=== PATIENT | male | born 1950 | race Caucasian/White ===

== ENCOUNTER → 2016-10-24 | Outpatient (CLI) | payer OTHER ==
[~2016-10-24] VITALS: Ht 172.7 cm; Wt 116.1 kg
[~2016-10-24] MED LIST: ASPI81EC86; ASPIR-LOW81 MG PO; ASPIRIN E.C. 8181 MG PO; AVALIDE 12.5 MG1 TA1 PO; AVALIDE PO; BOOST PO; COZAAR 25MG25 MG/TAB PO; EPA FISH OIL1000 MG PO; FORTAMET500 MG PO; GLUCOPHAGE500 MG/TAB PO; LIPITOR20 MG PO; METFORMIN500 MG PO; MOBIC 7.5MG7.5 MG PO; MULTIPLE VITAMI1 TA2 PO; NORVASC 5MG5 MG/TAB PO; SIMVASTATIN10 MG PO; SIMVASTATIN40 MG PO; ZOCOR 40MG40 MG PO
[2016-10-24 16:36] VITALS: BP 121/66; PULSE 78
== END ==
LOC: LIGHT 14:45
DX: Z98.84 Bariatric surgery status (principal)

== ENCOUNTER → 2017-01-30 | Outpatient (CLI) | payer OTHER ==
[~2017-01-30] VITALS: Ht 170.2 cm; Wt 119.1 kg
[2017-01-30 13:45] VITALS: BP 144/80
== END ==
LOC: LIGHT 01-16 12:30
DX: Z98.84 Bariatric surgery status (principal); Z68.41 Body mass index [BMI] 40.0-44.9, adult; Z71.3 Dietary counseling and surveillance

== ENCOUNTER 2018-01-07 10:46 | Emergency (ER) | payer OTHER ==
[~2018-01-07] VITALS: Ht 170.2 cm; Wt 113.6 kg
[2018-01-07 10:52] VITALS: BP 143/71; PULSE 57; TEMP 98
[2018-01-07] MEDS ORDERED: ROXICODONE 55 MG/TAB PO (12:46)
[2018-01-07] MEDS ORDERED: PREDNISONE20 MG PO (12:46)
== END 2018-01-07 12:53 | disposition home or self-care (01) ==
LOC: COL.ER 10:46
DX: M54.31 Sciatica, right side (principal); E11.9 Type 2 diabetes mellitus without complications; I10 Essential (primary) hypertension; Z79.82 Long term (current) use of aspirin; Z79.84 Long term (current) use of oral hypoglycemic drugs; Z87.891 Personal history of nicotine dependence
CPT/HCPCS: J7512

== ENCOUNTER → 2018-01-24 | Outpatient (CLI) | payer OTHER ==
[~2018-01-24] MED LIST changes: +PREDNISONE20 MG PO; +ROXICODONE 55 MG/TAB PO
== END ==
LOC: MHCPAIN 14:07
DX: G89.29 Other chronic pain (principal); M47.817 Spondylosis without myelopathy or radiculopathy, lumbosacral region; M54.16 Radiculopathy, lumbar region; M53.3 Sacrococcygeal disorders, not elsewhere classified; M48.061 Spinal stenosis, lumbar region without neurogenic claudication
CPT/HCPCS: G0463

== ENCOUNTER → 2018-01-29 | Outpatient (CLI) | payer OTHER | LOC: MHCPAIN 09:52 | DX: M54.16 Radiculopathy, lumbar region (principal) | CPT/HCPCS: J1100; Q9967 ==

== ENCOUNTER → 2018-02-12 | Outpatient (CLI) | payer OTHER | LOC: MHCPAIN 11:12 | DX: G89.29 Other chronic pain (principal); M47.817 Spondylosis without myelopathy or radiculopathy, lumbosacral region; M54.16 Radiculopathy, lumbar region; M53.3 Sacrococcygeal disorders, not elsewhere classified; M48.061 Spinal stenosis, lumbar region without neurogenic claudication | CPT/HCPCS: G0463 ==

== ENCOUNTER → 2018-02-15 | Outpatient (CLI) | payer OTHER | LOC: MHCPAIN 13:18 | DX: M54.16 Radiculopathy, lumbar region (principal); M47.817 Spondylosis without myelopathy or radiculopathy, lumbosacral region | CPT/HCPCS: J1100; Q9967 ==

== ENCOUNTER → 2018-03-13 | Outpatient (CLI) | payer OTHER | LOC: MHCPAIN 13:20 | DX: G89.29 Other chronic pain (principal); M47.817 Spondylosis without myelopathy or radiculopathy, lumbosacral region; M54.16 Radiculopathy, lumbar region; M53.3 Sacrococcygeal disorders, not elsewhere classified; M48.061 Spinal stenosis, lumbar region without neurogenic claudication | CPT/HCPCS: G0463 ==

== ENCOUNTER 2018-04-02 15:00 | Outpatient (RCR) | payer OTHER | END 2018-05-02 | disposition home or self-care (01) | LOC: WSPT | DX: M47.26 Other spondylosis with radiculopathy, lumbar region (principal); M47.818 Spondylosis without myelopathy or radiculopathy, sacral and sacrococcygeal region; M48.061 Spinal stenosis, lumbar region without neurogenic claudication; M53.3 Sacrococcygeal disorders, not elsewhere classified; M51.26 Other intervertebral disc displacement, lumbar region; G89.4 Chronic pain syndrome; Z79.84 Long term (current) use of oral hypoglycemic drugs; Z79.82 Long term (current) use of aspirin; Z79.891 Long term (current) use of opiate analgesic; Z79.899 Other long term (current) drug therapy | CPT/HCPCS: G0283-GP ==

== ENCOUNTER 2018-05-10 02:53 | Emergency (ER) | payer OTHER ==
[~2018-05-10] VITALS: Ht 170.2 cm; Wt 118.2 kg
[2018-05-10 02:55] VITALS: TEMP 97.5
[2018-05-10 03:31] LABS: BASO % 0.4 % (0.0-2.0); EOS # 0.2 (0.0-0.7); EOS % 2.9 % (0-4.0); GRAN # 4.9 (1.4-6.5); GRAN % 68.7 % (42.2-75.2); LYMPH # 1.5 (1.2-3.4); MEAN CELL VOLUME 89 fl (80.0-100.0); MEAN CORPUSCULAR HGB CONC 32 g/dl (33.0-37.0); MEAN PLATELET VOLUME 8.7 fl (7.4-10.4); MONO # 0.5 (0.1-0.6); MONO % 6.3 % (1.7-9.3); PLATELET COUNT 396 K/mm3 (130-400); RED BLOOD COUNT 3.38 M/mm3 (4.20-5.60); REDCELL DISTRIBUTION WIDTH-CV 12.9 % (11.5-14.5)
[2018-05-10 03:32] LABS: HEMATOCRIT 29.9 % (42.0-52.0); HEMOGLOBIN 9.7 g/dl (13.5-18.0); MEAN CORPUSCULAR HEMOGLOBIN 29 pg (27.0-31.0)
[2018-05-10 03:43] LABS: ALBUMIN 3.8 gm/dL (3.5-5.0); BILIRUBIN,TOTAL 0.4 mg/dL (0.0-1.0); C-REACTIVE PROTEIN 1.6 mg/dL (0.0-0.9); CALCIUM 8.9 mg/dL (8.4-10.2); CREATININE, serum 0.7 mg/dL (0.66-1.25); POTASSIUM 3.8 mmol/L (3.4-5.0); TOTAL PROTEIN 6.8 gm/dL (6.4-8.2)
[2018-05-10 04:19] LABS: ERYTHROCYTE SEDIMENTATION RATE 33 mm/hr (0-30)
[2018-05-10 05:42] LABS: COLLECTION METHOD CLEAN CATCH
[2018-05-10 05:54] LABS: PH 8 (5-8); SQUAMOUS EPITHELIAL 0-2 /hpf; URINE APPEARANCE Clear; URINE BACTERIA None Seen /hpf; URINE BILIRUBIN Negative (NEGATIVE); URINE BLOOD Negative (NEGATIVE); URINE COLOR Straw; URINE GLUCOSE Negative (NEGATIVE); URINE KETONE Negative (NEGATIVE); URINE LEUKOCYTE ESTERASE Negative (NEGATIVE); URINE NITRATE Negative (NEGATIVE); URINE PROTEIN(semi-quant) Negative (NEGATIVE); URINE RBC 0-2 /hpf; URINE UROBILINOGEN Negative (NEGATIVE)
[2018-05-10 06:13] VITALS: BP 140/90; PULSE 83
== END 2018-05-10 06:23 | disposition home or self-care (01) ==
LOC: COL.ER 02:53
PROVIDERS: Emergency Medicine
DX: G89.18 Other acute postprocedural pain (principal); M54.5 Low back pain; E11.9 Type 2 diabetes mellitus without complications; Z79.84 Long term (current) use of oral hypoglycemic drugs; Z79.82 Long term (current) use of aspirin
CPT/HCPCS: J1170; J2060; J7030

== ENCOUNTER → 2018-06-01 | Outpatient (CLI) | payer OTHER | LOC: COL.RAD 12:21 | DX: M51.36 Other intervertebral disc degeneration, lumbar region (principal); M43.16 Spondylolisthesis, lumbar region; Z98.1 Arthrodesis status ==

== ENCOUNTER → 2019-06-03 | Outpatient (CLI) | payer OTHER | LOC: COL.RAD 12:23 | DX: M51.16 Intervertebral disc disorders with radiculopathy, lumbar region (principal); S34.109S Unspecified injury to unspecified level of lumbar spinal cord, sequela; M43.16 Spondylolisthesis, lumbar region; M99.83 Other biomechanical lesions of lumbar region; Z98.1 Arthrodesis status ==

== ENCOUNTER → 2019-08-26 | Outpatient (CLI) | payer OTHER ==
[~2019-08-26] VITALS: Ht 170.2 cm; Wt 116.6 kg
[~2019-08-26] MED LIST changes: -COZAAR 25MG25 MG/TAB PO; +HYZAAR 12.5 MG-1 TAB PO; +LIPITOR 80MG80 MG PO; -LIPITOR20 MG PO; +NORVASC 10MG10 MG PO; -NORVASC 5MG5 MG/TAB PO
[2019-08-26 13:16] VITALS: BP 128/80; PULSE 68
== END ==
LOC: LIGHT 12:57
DX: E88.81 Metabolic syndrome and other insulin resistance (principal); Z68.41 Body mass index [BMI] 40.0-44.9, adult; Z98.84 Bariatric surgery status
CPT/HCPCS: G0463

== ENCOUNTER → 2019-12-02 | Outpatient (CLI) | payer OTHER ==
[~2019-12-02] VITALS: Ht 170.2 cm; Wt 120.2 kg
[~2019-12-02] MED LIST changes: +NEW BP MED
[2019-12-02 12:38] VITALS: BP 148/68; PULSE 76
== END ==
LOC: LIGHT 12:30
DX: E66.01 Morbid (severe) obesity due to excess calories (principal); Z68.41 Body mass index [BMI] 40.0-44.9, adult; R60.0 Localized edema; Z98.84 Bariatric surgery status
CPT/HCPCS: G0463

== ENCOUNTER → 2020-04-06 | Outpatient (CLI) | payer OTHER, MEDICARE ==
[~2020-04-06] VITALS: Ht 170.2 cm; Wt 119.7 kg
[~2020-04-06] MED LIST changes: +GLUCOPHAGE XR500 M1 PO; -GLUCOPHAGE500 MG/TAB PO
[2020-04-06 15:49] VITALS: BP 112/68
== END ==
LOC: LIGHT 14:37
DX: E66.01 Morbid (severe) obesity due to excess calories (principal); Z68.41 Body mass index [BMI] 40.0-44.9, adult; Z98.84 Bariatric surgery status
CPT/HCPCS: G0463

== ENCOUNTER → 2021-08-04 | Outpatient (CLI) | payer OTHER | LOC: COL.RAD 13:32 | DX: M48.061 Spinal stenosis, lumbar region without neurogenic claudication (principal); M51.16 Intervertebral disc disorders with radiculopathy, lumbar region; M79.652 Pain in left thigh; R29.898 Other symptoms and signs involving the musculoskeletal system; Z98.1 Arthrodesis status ==

== ENCOUNTER 2021-09-22 13:13 | Outpatient (RCR) | payer OTHER | END 2021-09-23 | LOC: MKS.ESL.PT | DX: G95.9 Disease of spinal cord, unspecified (principal) ==

== ENCOUNTER → 2021-09-28 | Outpatient (CLI) | payer OTHER | LOC: COL.RAD 12:47 | DX: R06.00 Dyspnea, unspecified (principal); J98.6 Disorders of diaphragm; R93.89 Abnormal findings on diagnostic imaging of other specified body structures ==

== ENCOUNTER 2021-10-22 12:45 | Outpatient (RCR) | payer OTHER | END 2021-10-23 | disposition home or self-care (01) | LOC: MKS.ESL.PT | DX: M48.02 Spinal stenosis, cervical region (principal) ==

== ENCOUNTER 2021-11-17 08:15 | Outpatient (RCR) | payer OTHER | END 2021-11-23 | disposition home or self-care (01) | LOC: MKS.ESL.PT | DX: M48.02 Spinal stenosis, cervical region (principal); Z98.1 Arthrodesis status ==

== ENCOUNTER 2021-12-22 10:30 | Outpatient (RCR) | payer OTHER | END 2021-12-23 | disposition home or self-care (01) | LOC: WSPT | DX: M48.02 Spinal stenosis, cervical region (principal) ==

== ENCOUNTER 2022-01-20 10:30 | Outpatient (RCR) | payer OTHER | END 2022-01-23 | disposition home or self-care (01) | LOC: WSC | DX: M48.02 Spinal stenosis, cervical region (principal); Z98.890 Other specified postprocedural states ==

== ENCOUNTER 2022-02-22 15:45 | Outpatient (RCR) | payer OTHER | END 2022-02-23 | disposition home or self-care (01) | LOC: WSPT | DX: M48.00 Spinal stenosis, site unspecified (principal); Z98.1 Arthrodesis status ==

== ENCOUNTER → 2022-04-12 | Outpatient (CLI) | payer MEDICARE | LOC: COL.RAD 11:57 | DX: M16.12 Unilateral primary osteoarthritis, left hip (principal) ==

== ENCOUNTER 2022-04-19 10:30 | Outpatient (RCR) | payer OTHER | END 2022-04-25 | disposition home or self-care (01) | LOC: WSC | DX: M50.10 Cervical disc disorder with radiculopathy, unspecified cervical region (principal); M48.02 Spinal stenosis, cervical region; M48.061 Spinal stenosis, lumbar region without neurogenic claudication ==

== ENCOUNTER 2022-04-22 13:45 | Outpatient (RCR) | payer OTHER | END 2022-04-25 | disposition home or self-care (01) | LOC: MKS.ESL.PT | DX: M48.02 Spinal stenosis, cervical region (principal) ==

== ENCOUNTER 2022-06-15 12:45 | Outpatient (RCR) | payer OTHER | END 2022-06-25 | disposition home or self-care (01) | LOC: MKS.ESL.PT | DX: M48.02 Spinal stenosis, cervical region (principal) ==

== ENCOUNTER 2022-07-06 14:15 | Outpatient (RCR) | payer OTHER | END 2022-07-26 | disposition home or self-care (01) | LOC: MKS.ESL.PT | DX: M48.02 Spinal stenosis, cervical region (principal); Z98.1 Arthrodesis status ==

== ENCOUNTER 2022-08-22 15:58 | Outpatient (RCR) | payer OTHER | END 2022-08-23 | LOC: MKS.ESL.PT | DX: M16.12 Unilateral primary osteoarthritis, left hip (principal) ==

== ENCOUNTER 2022-09-21 12:45 | Outpatient (RCR) | payer OTHER | END 2022-09-23 | disposition home or self-care (01) | LOC: MKS.ESL.PT | DX: M16.12 Unilateral primary osteoarthritis, left hip (principal); Z96.642 Presence of left artificial hip joint ==

== ENCOUNTER 2022-10-19 13:30 | Outpatient (RCR) | payer OTHER | END 2022-10-23 | disposition home or self-care (01) | LOC: MKS.ESL.PT | DX: M16.12 Unilateral primary osteoarthritis, left hip (principal); Z96.642 Presence of left artificial hip joint ==

== ENCOUNTER 2024-01-30 14:38 | Emergency (ER) | payer OTHER ==
[~2024-01-30] VITALS: Ht 170.2 cm; Wt 117.9 kg
[2024-01-30 16:30] VITALS: BP 130/80; PULSE 72; TEMP 98.1
== END 2024-01-30 16:31 | disposition home or self-care (01) ==
LOC: COL.ER 14:38
DX: M79.89 Other specified soft tissue disorders (principal)